=== PATIENT | female | born 1955 | race Hispanic/Latino ===

== ENCOUNTER 2016-09-05 07:39 | Day surgery (SDC) | payer BC ==
[2016-09-05] MEDS ORDERED: AFRIN NS NR (08:18)
[2016-09-05] MEDS ORDERED: ZOFRAN IV PRN (09:17)
--- NOTE | 2016-09-05 09:17 | Anesthesia Day of Surgery ---
Anesthesia Day of Surgery - Day of Surgery Patient Examined: Yes Patient H&P Reviewed: Yes Patient is NPO: Yes Beta Blockers: Yes
--- NOTE | 2016-09-05 09:17 | Anesthesia Consultation ---
Anesthesia Consult and Med Hx Date of service: 09/05/16 - Airway Anesthetic Teeth Evaluation: Good, Crowns ROM Head & Neck: Adequate Mental/Hyoid Distance: Adequate Mallampati Class: Class II Intubation Access Assessment: Probably Good - Pulmonary Exam CTA: Yes - Cardiac Exam Cardiac Exam: RRR - Pre-Operative Health Status ASA Pre-Surgery Classification: ASA3 Proposed Anesthetic Plan: General - Pulmonary Hx Smoking: No Hx Asthma: No - Cardiovascular System Hx Hypertension: Yes Hx Cardia Arrhythmia: Yes (history of ablation in 2008) - Central Nervous System Hx Seizures: No CVA: No Hx Psychiatric Problems: No - Endocrine Hx Renal Disease: No Hx Cirrhosis: No Hx Non-Insulin Dependent Diabetes: No Hx Thyroid Disease: No Hx Hypothyroidism: No - Other Systems Hx Cancer: Yes (skin CA)
[2016-09-05] MEDS: VERSED IV PRN ×2 (09:21→10:00)
[2016-09-05] MEDS ORDERED: XYLOCAINE MPF 2% ONE (09:54)
[2016-09-05] MEDS ORDERED: SUBLIMAZE ONE (09:54)
[2016-09-05] MEDS ORDERED: DIPRIVAN 10 MG/ML IV ONE (09:55)
[2016-09-05] MEDS ORDERED: ANCEF/STERILE WATER 2 GM/20 ML IV NR (10:00)
[2016-09-05] MEDS ORDERED: NACL 0.9% 1000 ML 1,000 ML IV SCH (10:00)
[2016-09-05] MEDS ORDERED: PEPCID PO NR (10:00)
[2016-09-05] MEDS ORDERED: DECADRON ONE (10:41)
[2016-09-05] MEDS ORDERED: ZOFRAN ONE (10:42)
[2016-09-05] MEDS ORDERED: NACL 0.9% 250ML IV ONE (10:48)
[2016-09-05] MEDS ORDERED: AFRIN NS ONE (10:48)
[2016-09-05] MEDS ORDERED: NACL 0.9% IR ONE (10:48)
[2016-09-05] MEDS ORDERED: XYLOCAINE 1%/ EPI 1:100,000 INFILTRATI ONE (10:48)
[2016-09-05] MEDS ORDERED: ANTIBIOTIC OINT TP ONE (11:00)
[2016-09-05] MEDS ORDERED: ePHEDrine SULFATE ONE (11:05)
[2016-09-05] MEDS ORDERED: DILAUDID ONE (11:34)
[2016-09-05] MEDS: DILAUDID IV PRN ×2 (12:10→12:20)
--- NOTE | 2016-09-05 12:11 | Short Stay Summary ---
Short Stay Documentation Date of service: 09/05/16 - Allergies and Medications Current Medications: Allergies No Known Allergies Allergy (Unverified 09/02/16 11:54) Home Medications Medication Instructions Recorded Confirmed Last Taken Type Calcium Carbonate/Vitamin D3 1 each PO DAILY 09/02/16 09/02/16 3 Weeks Ago History [Calcium 600-Vit D3 400 Tablet] Cyanocobalamin (Vitamin B-12) 2,500 mcg PO DAILY 09/02/16 09/02/16 3 Weeks Ago History [Vitamin B12] Gluc/Abdullahi-MSM#1/C/Armando/Trey/Bor 1 each PO DAILY 09/02/16 09/02/16 3 Weeks Ago History [Osteo Bi-Flex Caplet] Lisinopril [Lisinopril] 20 mg PO DAILY 09/02/16 09/02/16 09/05/16 05:00 History Meloxicam [Meloxicam] 15 mg PO DAILY 09/02/16 09/02/16 3 Weeks Ago History Metoprolol [Lopressor] 25 mg PO BID 09/02/16 09/02/16 09/05/16 05:00 History Active Medications Cefazolin Sodium (Ancef/Sterile Water 2 Gm/20 Ml) 2 gm IV PREOP NR Stop: 09/05/16 23:59 Famotidine (Pepcid) 20 mg PO PREOP NR Stop: 09/05/16 23:59 Last Admin: 09/05/16 09:19 Dose: 20 mg Hydromorphone HCl (Dilaudid) 0.5 mg IV Q10MIN PRN PRN Reason: Pain , Severe (7-10) Stop: 09/05/16 18:00 Sodium Chloride (Nacl 0.9% 1000 Ml) 1,000 mls @ 75 mls/hr IV DIRECT CIARAN Last Admin: 09/05/16 09:20 Dose: 75 mls/hr Midazolam HCl (Versed) 2 mg IV PREOP PRN PRN Reason: Anxiety Stop: 09/05/16 23:59 Last Admin: 09/05/16 10:00 Dose: 2 mg Ondansetron HCl (Zofran) 4 mg IV ONCE PRN PRN Reason: Nausea And Vomiting Stop: 09/05/16 18:00 Oxymetazoline HCl (Afrin) 2 spray NS ONCE NR Stop: 09/05/16 23:59 Last Admin: 09/05/16 09:20 Dose: 2 spray - Brief post op/procedure progress note Date of procedure: 09/05/16 Pre-op diagnosis: 1. Nasal septal deviation; 2. Hypertrophy of inferior turbinates Post-op diagnosis: same Procedure: 1. Septoplasty; 2. Bilateral partial submucosal inferior turbinate resection using microdebrider. Anesthesia: other (General via laryngeal mask anesthesia) Findings: Severely deviated septum to the right with subluxation to the left. Hypertrophy of inferior turbinates. Surgeon: REJI WADE Estimated blood loss: minimal Pathology: list (Septal cartilage and bone were sent to Pathology) Specimen disposition: to lab Condition: stable - Disposition Condition at discharge: Good Disposition: DISCHARGED TO HOME OR SELFCARE Short Stay Discharge Plan Activity: advance as tolerated Diet: advance as tolerated Wound: per your surgeon's advice Follow up with: REJI WADE MD [Staff Physician] - 3 Days Prescriptions: Amoxicillin 500 mg PO Q8HR #14 capsule HYDROcodone/APAP 7.5-325 [Bayard 7.5/325] 1 each PO Q8HR PRN #14 tablet PRN Reason: Pain Promethazine [Phenergan TAB] 12.5 mg PO Q8HR PRN #10 tab PRN Reason: Nausea
[2016-09-05] MEDS ORDERED: NORCO 5/325 PO PRN (12:36)
--- NOTE | 2016-09-05 13:00 | Post Anesthesia Evaluation ---
- Post Anesthesia Evaluation Patient Participated: Yes Airway Patent: Yes Stable Respiratory Function: Yes Temp > 96.8F: Yes Pain Manageable: Yes Adequeate Hydration: Yes Anesthesia Complications: No Block Receding Appropriately: Not Applicable
[2016-09-05 14:43] VITALS: BP 120/69
--- NOTE | 2016-09-06 01:55 | Admit Criteria Form ---
Admission Criteria Documentation: AMBULATORY SURGERY EXCEPTION CRITERIA Ambulatory Surgery Exception Criteria ( Place 'X' for any and all applicable criteria): Surgery or procedure performed on ambulatory basis may require inpatient stay for[A] ANY ONE of the following(1)(2)(3)(4)(5)(6)(7)(8)(9): [X] I. A preoperative situation, condition, or finding that warrants inpatient stay as indicated by ANY ONE of the following: [] a) Inpatient care needed because of severity of a disease or condition rather than the surgery (eg, severe cardiac or respiratory disease, severe infection) (15) (16 ) (17) (18) [] b) Emergent procedure (eg, angioplasty for acute ischemia)(19) [] c) Complex surgical approach or situation as indicated by ANY ONE of the following(3): [] i) Open approach needed instead of usual endoscopic, transcatheter, or other less invasive procedure [] ii) Difficult approach because of previous operation [] iii) Airway monitoring required after open neck procedures(20)(21) [] iv) Large mass requiring unusually extensive dissection [] v) Additional complicating feature requiring inpatient care (eg, drain management)(22(23): [X] d) Major surgery in a pt with high anesthetic risk as indicated by ANY ONE of the following (2)(3)(5)(7)(8): [X] i) ASA risk class III or higher (severe systemic disease impairing function) [D] [] ii) Advanced age (eg, older than 85 years)(14)(24) [] iii) Symptomatic heart failure(25) [] iv) Symptomatic asthma or COPD(8)(21) [] v) Morbid obesity with hemodynamic or respiratory problems(20)( 21)(26)(27) [] vi) Obstructive sleep apnea(20)(21) [] vii) Former premature infants who are younger than 60 weeks [] viii) High risk for severe postoperative abnormalities (eg, severe postoperative hypocalcemia after parathyroidectomy for severe hyperparathyroidism)(27)( 28) [] ix) Unstable angina(25) [] e) Drug-related risk requiring inpatient stay as indicated by ANY ONE of the following(5)(10)(14)(32)(33) [] i) Procedure requires discontinuing drugs or other therapy (eg , antiarrhythmic medication, antiseizure medication), which necessitates inpatient observation or treatment.(18)(31) [] ii) Major surgery and high risk drug use as indicated by ANY ONE of the following: [] 1) Active abuse of cocaine or similar drug [] 2) Monoamine oxidase inhibitor use [] 3) Other drug identified as posing risk [] f) Inadequate outpatient care situation as indicated by ANY ONE of the following(5)(10)(14)(32)(33) [] i) Patient lives remote from medical facility and procedure has urgent complication potential, and temporary nearby residence cannot be arranged [] ii) Patient will have postprocedure incapacitation and inadequate assistance at home, or alternative level of care cannot be arranged. [] iii) Patient will have long general anesthesia or procedure side effect resolution time, and competent person to stay with patient on first postoperative night at home or alternative level of care cannot be arranged. []iv) Other inadequate outpatient situation that cannot be handled by other means [] II. A perioperative event, condition, or finding that warrants inpatient stay as indicated by ANY ONE of the following (1)(2)(3): [] a) Inadequate physiologic recovery: cardiovascular, respiratory, or hemodynamic status not normal or near preoperative baseline(18) [] b) Hemodynamic instability [] c) Patient not alert with near normal or baseline mental status [] d) Temperature not normal or as expected and not appropriate for outpatient treatment of condition [] e) Ambulatory or appropriate activity level status not yet achieved post procedure [E](34)(35)(36) [] f) Operative site not appropriate (eg, unexpected or excessive drainage or bleeding) [] g) Postoperative effects not resolved or adequately managed (eg, significant pain or vomiting not appropriate for outpatient or next level of care)(10)(12) [] h) Complicating features requiring inpatient care as indicated by ANY ONE of the following(37): [] i) Severe complications of procedure (eg, bowel injury, airway compromise, vascular injury,severe hemorrhage) [] ii) Extensive (eg, dissection far beyond usual scope of procedure ) or prolonged (eg, 120 minutes beyond usual) surgery needed requiring inpatient postoperative care [] iii) Conversion to an open or complex procedure that requires inpatient care (eg, open vs laparoscopic cholecystectomy, abdominal vs vaginal hysterectomy)(38) [] iv) Comorbid condition or test result identified during or post procedure that requires inpatient care (7) [] v) Malignant hyperthermia(30) [] vi) Other complicating feature requiring inpatient care(22)(23) Inpatient stay may be needed until ALL of the following are present (1)(2)(3)(4) (5)(6)(10)(14)(33)(40): []a) Physiologic recovery: cardiovascular, respiratory, and hemodynamic status normal or near preoperative baseline []b) Hemodynamic stability []c) Patient alert, with near normal or baseline mental status []d) Temperature appropriate: patient afebrile or temperature appropriate for outpt treatment of condition []e) Activity level appropriate: ambulatory or appropriate activity level post procedure []f) Operative site appropriate as indicated by ALL of the following: []i) Site dry or with expected drainage []ii) Any blood noted is as expected for procedure. []g) Postoperative effects resolved or managed as indicated by ALL of the following: []i) Pain management appropriate for outpatient (or next level of) care(10) []ii) Minimal nausea and vomiting: if present, successfully treated with oral medication(12) []iii) Headache, dizziness, or drowsiness (if present) are mild. []h) Voiding status acceptable as indicated by ANY ONE of the following: []i) Voiding spontaneously []ii) No voiding but instructions given for follow-up in 6 to 8 hours []iii) Urinary catheter in place, and instructions given for follow-up []i) Complicating features requiring inpatient care manageable at a lower level of care(37) []j) Comorbid conditions manageable at a lower level of care(37) The original [employer] content created by [employer] has been revised. The portions of the content which have been revised are identified through the use of italic text or in bold, and [facility] [employer] has neither reviewed nor approved the modified material. All other unmodified content is copyright [employer]. Please see references footnoted in the original [employer] edition 2016 Admission Criteria Met: Yes
--- NOTE | 2016-09-07 01:08 | Operative Report ---
PRINCIPAL DIAGNOSES: 1. Nasal septal deviation. 2. Hypertrophy of inferior turbinates. PRINCIPAL SURGICAL PROCEDURE: 1. Septoplasty. 2. Bilateral inferior turbinate resection using submucosal resection with microdebrider. SURGEON: Jewel Basurto MD ANESTHESIA: General via laryngeal mask anesthesia. COMPLICATIONS: None. SPECIMENS: Septal cartilage and bone were submitted to pathology for permanent sectioning. ESTIMATED BLOOD LOSS: 10-15 mL of blood. INDICATION FOR SURGERY: The patient is a 60-year-old female who presented with severe nasal septal deviation to the right and subluxation of the septum to the left. The patient suffered from chronic nasal airway obstruction and requested correction of the deviated septum and hypertrophy of turbinates so she could breathe better. DESCRIPTION OF PROCEDURE: The patient was taken to the operating room and was placed on the operating table in supine position. After satisfactory plane of general anesthesia via laryngeal mask anesthesia was achieved, the head was placed in a donut. Nose that was already decongested with Afrin while the patient was in holding area, was infiltrated specifically in mucosal of the nasal septum and inferior turbinates in the anterior half with total of 14 mL of 1% Xylocaine with 1:100,000 epinephrine and then we draped the patient for the procedure. Procedure started by making hemitransfixion incision on the right side. We then elevated mucoperichondrial flap on the right side and posterior mucoperiosteal flap and then the same was done on the left side by turning caudal end of the septum. We then made a vertical incision in the septal cartilage preserving approximately 2 cm at the caudal end as well as 1 cm dorsal strip and then removed the deviated portions of the septum using a Jonna forceps. The bony deflection was removed with osteotome. Septum was too long and 1 mm of caudal strip was removed to resolve the subluxation and the inferior strip also in the way of the 1 mm was used to minimize the curvature of the septum. Completely mobilized septum was placed over the anterior inferior nasal spine where it was sutured with 4-0 Vicryl to the periosteum of the anterior inferior nasal spine and thus find a new midline position of the septum. We then closed the hemitransfixion incision with interrupted sutures using 4-0 chromic gut and then placed 3 septocolumellar sutures also using the same material with the straight Myles needle to reinforce the position of the caudal end of the septum between the medial crura of the lower lateral cartilages. After that, we sutured the mucoperichondrium to preserve cartilage with a 4-0 plain gut on the straight Myles needle, also using mattress suturing technique. Once the septoplasty was complete, a sagittal incision was made in the anterior pole of each inferior turbinate. Caudal elevator was used to elevate the mucoperiosteal flap along the medial surface of each inferior turbinate to its anterior half and a microdebrider was used to remove the soft tissue of the bone of the inferior turbinate on its medial surface as well as submucosa of the mucoperiosteal layer on both sides. We then lateralized the inferior turbinates with the Bingham elevator. I suctioned the blood from the nasopharynx and nose and then placed Myers splints impregnated with bacitracin ointment on either side. We sutured the Myers splints to the caudal septum with a 4-0 Prolene and with this surgical, procedure was completed, the patient was then extubated in the operating room and transferred to the recovery room in stable and satisfactory condition. [facility]# [id number] ANGELICA/MAGDA
== END 2016-09-05 15:10 | disposition home or self-care (01) ==
LOC: OR 07:39
PROVIDERS: ATTEND Otolaryngology Sleep Medicine
DX: J34.2 Deviated nasal septum (principal); J34.3 Hypertrophy of nasal turbinates; K21.9 Gastro-esophageal reflux disease without esophagitis; I10 Essential (primary) hypertension; Z85.828 Personal history of other malignant neoplasm of skin; Z82.49 Family history of ischemic heart disease and other diseases of the circulatory system
CPT/HCPCS: 30140; 30520; 88300; J0690; J1100; J1170; J2250; J2405; J2704; J3010; J7030; J7050; 88304